=== PATIENT | male | born 1985 | race American Indian/Alaskan Native ===

== ENCOUNTER 2017-02-02 10:17 | Emergency (ER) | payer SELFPAY ==
[2017-02-02 10:35] VITALS: BP 159/85; PULSE 110; RESP 18; TEMP 98.4; O2SAT 98
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
== END 2017-02-02 12:23 | disposition home or self-care (01) ==
LOC: ED 10:17
DX: S00.93XA Contusion of unspecified part of head, initial encounter (principal); S23.41XA Sprain of ribs, initial encounter; Y04.0XXA Assault by unarmed brawl or fight, initial encounter; Y92.9 Unspecified place or not applicable

== ENCOUNTER 2018-04-10 19:47 | Emergency (ER) | payer OTHER ==
[2018-04-10 20:02] VITALS: BMI 21.5
[2018-04-10 20:03] VITALS: RESP 17
[2018-04-10] MEDS ORDERED: Sodium Chloride 0.9% 1,000 ML IV STA (20:30)
--- NOTE | 2018-04-10 20:30 | ED PDOC ---
Arrival/HPI - General Chief Complaint: GI Problem Time Seen by Provider: 04/10/18 20:15 Historian: Patient - History of Present Illness Narrative History of Present Illness (Text): 04/10/18 20:30 Elena Montgomery is a 33 year old male, with no significant past medical history , who presents to the Emergency department complaining of nausea and vomiting. Patient states he has been experiencing nausea with multiple episodes of vomiting, diarrhea, and some abdominal cramping after eating fast food 2 days prior. Patient reports decreased PO intake secondary to vomiting. Patient denies any fever, chills, chest pain, shortness of breath, urinary symptoms, back pain, neck pain, headache, dizziness, or any other complaints. Symptom Onset: Gradual Symptom Course: Unchanged Activities at Onset: Light Context: Home Past Medical History - Provider Review Nursing Documentation Reviewed: Yes - Infectious Disease Hx of Infectious Diseases: None - Psychiatric Hx Substance Use: No Family/Social History - Physician Review Nursing Documentation Reviewed: Yes Family/Social History: Unknown Family HX Smoking Status: Light Smoker < 10 Cigarettes Daily Hx Alcohol Use: Yes Frequency of alcohol use: Socially Hx Substance Use: No Allergies/Home Meds Allergies/Adverse Reactions: Allergies No Known Allergies Allergy (Verified 04/10/18 20:01) Review of Systems - Physician Review All systems were reviewed & negative as marked: Yes - Review of Systems Constitutional: Normal. absent: Fevers Eyes: Normal ENT: Normal Respiratory: Normal. absent: SOB, Cough Cardiovascular: Normal Gastrointestinal: Abdominal Pain, Diarrhea, Nausea, Vomiting Genitourinary Male: Normal. absent: Dysuria, Frequency, Hematuria, Urinary Output Changes Musculoskeletal: Normal. absent: Back Pain, Neck Pain Skin: Normal. absent: Rash Neurological: Normal. absent: Headache, Dizziness Endocrine: Normal Hemo/Lymphatic: Normal Psychiatric: Normal Physical Exam Vital Signs Reviewed: Yes Vital Signs Temp Pulse Resp BP Pulse Ox 04/10/18 21:43 72 17 139/86 98 04/10/18 20:02 98.5 F 76 17 145/99 H 99 Temperature: Afebrile Blood Pressure: Normal Pulse: Regular Respiratory Rate: Normal Appearance: Positive for: Well-Appearing, Non-Toxic, Comfortable Pain Distress: None Mental Status: Positive for: Alert and Oriented X 3 - Systems Exam Head: Present: Atraumatic, Normocephalic Pupils: Present: PERRL Extroacular Muscles: Present: EOMI Conjunctiva: Present: Normal Mouth: Present: Moist Mucous Membranes Neck: Present: Normal Range of Motion Respiratory/Chest: Present: Clear to Auscultation, Good Air Exchange. No: Respiratory Distress, Accessory Muscle Use Cardiovascular: Present: Regular Rate and Rhythm, Normal S1, S2. No: Murmurs Abdomen: No: Tenderness, Distention, Peritoneal Signs Back: Present: Normal Inspection Upper Extremity: Present: Normal Inspection. No: Cyanosis, Edema Lower Extremity: Present: Normal Inspection. No: Edema Neurological: Present: GCS=15, CN II-XII Intact, Speech Normal Skin: Present: Warm, Dry, Normal Color. No: Rashes Psychiatric: Present: Alert, Oriented x 3, Normal Insight, Normal Concentration Medical Decision Making ED Course and Treatment: 04/10/18 20:30 Impression: 33 year old male complaining of nausea, vomiting, diarrhea, and abdominal cramping for 2 days. Differential Diagnosis included but are not limited to: gastroenteritis Plan: -- Labs, lipase -- IV fluids -- Zofran -- Toradol -- Pepcid -- Reassess and disposition Progress Notes: 04/10/18 22:59 On re-evaluation, patient feels better and is in no acute distress. I have discussed the results and plan with the patient, who expresses understanding. Patient in agreement with plan to be discharged home. Patient is stable for discharge. Patient was instructed to follow up with physician or return if symptoms worsen or new concerning symptoms arise. - Lab Interpretations Lab Results: 04/10/18 20:35 04/10/18 20:35 Lab Results 04/10/18 20:35: WBC 8.6, RBC 5.22, Hgb 13.7 L, Hct 41.1 L, MCV 78.7 L, MCH 26.2 , MCHC 33.3, RDW 14.2, Plt Count 192, MPV 10.6 04/10/18 20:35: Sodium 144, Potassium 3.4 L, Chloride 105, Carbon Dioxide 25, Anion Gap 18, BUN 13, Creatinine 0.8, Est GFR ( Amer) > 60, Est GFR (Non- Af Amer) > 60, Random Glucose 100, Calcium 8.9, Total Bilirubin 1.8 H, AST 52, ALT 50, Alkaline Phosphatase 51, Total Protein 6.7, Albumin 3.9, Globulin 2.8, Albumin/Globulin Ratio 1.4, Lipase 32 I have reviewed the lab results: Yes - Medication Orders Current Medication Orders: Discontinued Medications Famotidine (Pepcid) 20 mg IVP STAT STA Stop: 04/10/18 20:31 Last Admin: 04/10/18 20:55 Dose: 20 mg IVP Administration Document 04/10/18 20:55 IT (Rec: 04/10/18 20:55 IT [id number]) Charges for Administration # of IVP Administrations 1 Sodium Chloride (Sodium Chloride 0.9%) 1,000 mls @ 999 mls/hr IV .Q1H1M STA Stop: 04/10/18 21:30 Last Admin: 04/10/18 20:55 Dose: 999 mls/hr eMAR Start Stop Document 04/10/18 20:55 IT (Rec: 04/10/18 20:55 IT [id number]) Intravenous Solution Start Date 04/10/18 Start Time 20:55 Ketorolac Tromethamine (Toradol) 30 mg IVP ONCE ONE Stop: 04/10/18 20:31 Last Admin: 04/10/18 20:55 Dose: 30 mg MAR Pain Assessment Document 04/10/18 20:55 IT (Rec: 04/10/18 20:55 IT [id number]) Pain Reassessment Is this a pain reassessment? No Sleep Is patient sleeping during reassessment? No Presence of Pain Presence of Pain Yes Pain Scale Used Pain Scale Used Numeric Location Left, Right or Bilateral Bilateral Pain Location Body Site Abdomen IVP Administration Document 04/10/18 20:55 IT (Rec: 04/10/18 20:55 IT [id number]) Charges for Administration # of IVP Administrations 1 Ondansetron HCl (Zofran Inj) 4 mg IVP ONCE ONE Stop: 04/10/18 20:31 Last Admin: 04/10/18 20:55 Dose: 4 mg IVP Administration Document 04/10/18 20:55 IT (Rec: 04/10/18 20:55 IT [id number]) Charges for Administration # of IVP Administrations 1 Potassium Chloride (K-Dur 20 Meq Er Tab) 40 meq PO STAT STA Stop: 04/10/18 22:40 Last Admin: 04/10/18 22:57 Dose: 40 meq - Scribe Statement The provider has reviewed the documentation as recorded by the Shakilaibe Tigist Milner All medical record entries made by the Shakilaib[place]etano were at my direction and personally dictated by me. I have reviewed the chart and agree that the record accurately reflects my personal performance of the history, physical exam, medical decision making, and the department course for this patient. I have also personally directed, reviewed, and agree with the discharge instructions and disposition. Disposition/Present on Arrival - Present on Arrival Any Indicators Present on Arrival: No History of DVT/PE: No History of Uncontrolled Diabetes: No Urinary Catheter: No History of Decub. Ulcer: No History Surgical Site Infection Following: None - Disposition Have Diagnosis and Disposition been Completed?: Yes Diagnosis: Gastroenteritis Disposition: HOME/ ROUTINE Disposition Time: 23:01 Patient Plan: Discharge Condition: GOOD Discharge Instructions (ExitCare): Gastroenteritis (ED) Additional Instructions: Drink small amounts of liquids at a time/may drink Gatorade/medication as prescribed/advance diet(bland) slowly as tolerated/follow up with your doctor this week Prescriptions: Dicyclomine [Dicyclomine HCl] 10 mg PO QID PRN #16 cap PRN Reason: abdominal cramps Ondansetron [Zofran Odt] 4 mg PO Q6 PRN #12 odt PRN Reason: Nausea/Vomiting Forms: [facility] (Ethiopian)
[2018-04-10 20:47] LABS: HEMOGLOBIN 13.7 g/dL (14.0-18.0); MEAN CELL VOLUME 78.7 fl (80.0-105.0); MEAN CORPUSCULAR HEMOGLOBIN 26.2 pg (25.0-35.0); MEAN CORPUSCULAR HGB CONC 33.3 g/dl (31.0-37.0); MEAN PLATELET VOLUME 10.6 fl (7.0-11.0); RBC 5.22 10^6/uL (3.5-6.1); RED CELL DISTRIBUTION WIDTH 14.2 % (11.5-14.5); WHITE BLOOD COUNT 8.6 10^3/ul (4.5-11.0)
[2018-04-10 21:01] LABS: ALB/GLOB RATIO 1.4 (1.1-1.8); ALBUMIN 3.9 g/dL (3.0-4.8); ALT/SGPT 50 U/L (7-56); AST/SGOT 52 U/L (17-59); BLOOD UREA NITROGEN 13 mg/dL (7-21); CALCIUM 8.9 mg/dL (8.4-10.5); GFR AFRICAN-AMERICAN > 60; GFR NON-AFRICAN AMERICAN > 60; LIPASE 32 U/L (23-300)
[2018-04-10] MEDS ORDERED: Potassium Chloride 20 mEq ER Tab PO STA (22:39)
[2018-04-10 23:17] VITALS: BP 142/78; PULSE 70; TEMP 98.2; O2SAT 100
== END 2018-04-10 23:17 | disposition home or self-care (01) ==
LOC: ED 19:47
DX: K52.9 Noninfective gastroenteritis and colitis, unspecified (principal)
CPT/HCPCS: 80053; 83690; 85027; 96374; 96375; 99283; J1885; J2405; J7030

== ENCOUNTER 2018-05-16 04:06 | Emergency (ER) | payer OTHER ==
[2018-05-16 04:19] VITALS: BMI 19.8
[2018-05-16] MEDS ORDERED: TDAP Vaccine 0.5 mL Syr IM ONE (04:20)
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
[2018-05-16 04:22] VITALS: TEMP 97.6; O2SAT 100
[2018-05-16 06:50] VITALS: BP 116/70; PULSE 70; RESP 16
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
--- NOTE | 2018-05-16 12:47 | CT ---
Date of service: 05/16/2018 PROCEDURE: CT MAXILLOFACIAL BONES WITHOUT CONTRAST HISTORY: injury COMPARISON: None TECHNIQUE: Contiguous axial CT images of the maxillofacial bones were obtained. Coronal and sagittal reformats were generated. Radiation dose: Total exam DLP = 816 mGy-cm. This CT exam was performed using one or more of the following dose reduction techniques: Automated exposure control, adjustment of the mA and/or kV according to patient size, and/or use of iterative reconstruction technique. FINDINGS: NASAL BONES: Unremarkable. ORBITS: There is soft tissue swelling anterior to the left orbit. There is no evidence of fracture PARANASAL SINUSES/ MASTOIDS: Clear. MAXILLA: Unremarkable. MANDIBLE/ TEMPOROMANDIBULAR JOINTS: Unremarkable. SKULL BASE: Unremarkable. TEMPORAL BONES: Middle ears and mastoid grossly unremarkable. OTHER FINDINGS: The report concurs with the preliminary [facility] report IMPRESSION: Preseptal soft tissue swelling over the left orbit. No evidence of fracture
== END 2018-05-16 06:49 ==
LOC: ED 04:06
DX: S01.512A Laceration without foreign body of oral cavity, initial encounter (principal); S01.81XA Laceration without foreign body of other part of head, initial encounter; Y04.0XXA Assault by unarmed brawl or fight, initial encounter; Y92.009 Unspecified place in unspecified non-institutional (private) residence as the place of occurrence of the external cause; F17.210 Nicotine dependence, cigarettes, uncomplicated; Z23 Encounter for immunization